=== PATIENT | male | born 1990 | race African-American/Black ===

== ENCOUNTER 2016-12-12 04:10 | Emergency (ER) | payer OTHER ==
[2016-12-12] MEDS ORDERED: Ondansetron INJ* 2 MG/ML VIAL IV ONE (04:20)
[2016-12-12] MEDS ORDERED: NS 0.9% 1000 ML* 1,000 ML IV ONE (04:20)
--- NOTE | 2016-12-12 04:57 | ED ---
I, Oh,Sotaylor, scribed for Marc Hines MD on 12/12/16 at 0431 . Abdominal Pain/Male - HPI Summary HPI Summary: This 26 y/o male presents to ED for acute diffuse abd pain and n/v since 0230 AM tonight. Pt took pepto bismol but threw up right after. Positive coffee ground emesis, sore throat, and diarrhea. Nausea is currently alleviated but still persists. PMHx includes asthma. - History of Current Complaint Chief Complaint: EDNauseaVomitDiarrh Stated Complaint: VOMITING BLOOD Time Seen by Provider: 12/12/16 04:20 Hx Obtained From: Patient, Medical Records Onset/Duration: Still Present Timing: Constant Pain Intensity: 6 Pain Scale Used: 0-10 Numeric Location: Diffuse Radiates: No Character: Dull Aggravating Factor(s): Nothing Alleviating Factor(s): Nothing Associated Signs And Symptoms: Positive: Nausea, Vomiting - coffee ground emesis , Diarrhea, Other - sore throat. - Allergies/Home Medications Allergies/Adverse Reactions: Allergies Allergy/AdvReac Type Severity Reaction Status Date / Time No Known Allergies Allergy Verified 06/25/14 15:49 PMH/Surg Hx/FS Hx/Imm Hx Respiratory History: Reports: Hx Asthma GI History: Denies: Hx Crohn's Disease, Hx Diverticulosis, Hx Gall Bladder Disease, Hx Gastroesophageal Reflux Disease, Hx Ulcer Infectious Disease History: Yes Infectious Disease History: Denies: Traveled Outside the [place] in Last 30 Days - Family History Known Family History: Positive: Hypertension - mother - Social History Alcohol Use: Rare Hx Substance Use: Yes Substance Use Type: Reports: Marijuana - occasionally Substance Use Comment - Amount & Last Used: rare - none today Hx Tobacco Use: No Smoking Status (MU): Never Smoked Tobacco Review of Systems Negative: Fever Positive: Abdominal Pain, Vomiting - coffee ground emesis, Diarrhea, Nausea All Other Systems Reviewed And Are Negative: Yes Physical Exam Triage Information Reviewed: Yes Vital Signs On Initial Exam: Initial Vitals Temp Pulse Resp BP Pulse Ox 99.1 F 81 16 138/60 97 12/12/16 04:15 12/12/16 04:15 12/12/16 04:15 12/12/16 04:15 12/12/16 04:15 Vital Signs Reviewed: Yes Appearance: Positive: Well-Appearing, No Pain Distress Skin: Positive: Warm Head/Face: Positive: Normal Head/Face Inspection Eyes: Positive: LUCY ENT: Positive: Hearing grossly normal Neck: Positive: Supple Respiratory/Lung Sounds: Positive: Clear to Auscultation, Breath Sounds Present Cardiovascular: Positive: RRR Abdomen Description: Positive: Nontender, Soft Bowel Sounds: Positive: Present Musculoskeletal: Positive: Strength/ROM Intact Neurological: Positive: Alert, Oriented to Person Place, Time Diagnostics - Vital Signs Vital Signs Temp Pulse Resp BP Pulse Ox 12/12/16 04:15 99.1 F 81 16 138/60 97 - Laboratory Result Diagrams: 12/12/16 04:34 12/12/16 04:34 Lab Statement: Any lab studies that have been ordered have been reviewed, and results considered in the medical decision making process. Re-Evaluation - Re-Evaluation First Eval Change: Improved Abdominal Pain Fem Course/Dx - Diagnoses Provider Diagnoses: Vomiting Discharge - Discharge Plan Condition: Improved Disposition: HOME Patient Education Materials: Acute Nausea and Vomiting (ED) Referrals: Snadro James MD [Primary Care Provider] - 2 Days The documentation as recorded by the Refugio turcios Soohyun accurately reflects the service I personally performed and the decisions made by Flora medina David, MD.
[2016-12-12 05:11] LABS: Hematocrit 42 % (42-52); Mean Corpuscular HGB Conc 33 g/dl (31-36); Mean Corpuscular Hemoglobin 27 pg (27-31); Mean Corpuscular Volume 82 fL (80-94); Mean Platelet Volume 9 um3 (7.4-10.4); Red Blood Count 5.11 10^6/ul (4.0-5.4); Red Cell Distribution Width 13 % (10.5-15); White Blood Count 6.5 10^3/ul (3.5-10.8)
[2016-12-12 05:20] LABS: Albumin 4.2 g/dL (3.2-5.2); BUN/Creatinine Ratio 9.8 (8-20); C Reactive Protein 13.99 mg/L (< 5.00); EGFR Non-African American 66.1 (>60); Globulin 3.4 g/dL (2-4); Potassium 3.6 mmol/L (3.5-5.0); Total Bilirubin 0.5 mg/dL (0.2-1.0); Total Protein 7.6 g/dL (6.4-8.9)
[2016-12-12 06:05] VITALS: BP 145/73
== END 2016-12-12 06:18 | disposition home or self-care (01) ==
LOC: ED 04:10
DX: R11.10 Vomiting, unspecified (principal); J45.909 Unspecified asthma, uncomplicated
CPT/HCPCS: 36415; 80053; 83690; 85025; 86140; 86703; 96360; 96374; 99282; J2405

== ENCOUNTER 2017-06-05 10:08 | Emergency (ER) | payer OTHER ==
[2017-06-05 10:35] VITALS: BP 132/77
== END 2017-06-05 11:35 | disposition left against medical advice (07) ==
LOC: ED 10:08
DX: R07.9 Chest pain, unspecified (principal); Z53.21 Procedure and treatment not carried out due to patient leaving prior to being seen by health care provider
CPT/HCPCS: 99281

== ENCOUNTER 2018-01-30 18:46 | Emergency (ER) | payer OTHER ==
[2018-01-30 19:43] LABS: ABS Basophils 0 10^3/ul (0-0.2); ABS Eosinophils 0.1 10^3/ul (0-0.6); ABS Lymphocytes 1.6 10^3/ul (1.0-4.8); ABS Monocytes 0.3 10^3/ul (0-0.8); ABS Neutrophils 1.8 10^3/ul (1.5-7.7); ABS Nucleated RBC 0 10^3/ul; Eosinophil % 3.6 % (0-6); Hematocrit 38 % (42-52); Hemoglobin 12.8 g/dl (14.0-18.0); Lymphocyte % 41.4 % (25-47); Mean Corpuscular HGB Conc 33 g/dl (31-36); Mean Corpuscular Hemoglobin 28 pg (27-31); Mean Corpuscular Volume 83 fL (80-94); Mean Platelet Volume 8.3 um3 (7.4-10.4); Nucleated Red Blood Cells % 0; Platelet Count 176 10^3/ul (150-450); Red Blood Count 4.64 10^6/ul (4.0-5.4); Red Cell Distribution Width 14 % (10.5-15)
--- NOTE | 2018-01-30 19:51 | ED ---
HPI Chest Pain - HPI Summary HPI Summary: Complains of intermittent mid CP 1 week. No active CP here in ED. CP described as pressure, intermittent, lasting 20-30 minutes at a time, no radiation, random onset, sternal. Denies associated SOB with episodes of CP, exercises regularly without cp or SOB. Patient denies fever, cough, sore throat , history of heartburn, N/V/D, abdominal pain, change in urine or BM. Medical history is asthma. Has used an inhaler without relief of chest pain. Patient non-tobacco smoker, negative family cardiac history. Denies use of illegal stimulants such as cocaine or methamphetamine. Does admit to using thermogenic metabolism booster super HD for 1 month with last dose 3 days ago. Denies history of blood clots, hx of CA, recent surgery or trauma, long distance travel , unilateral leg pain. - History of Current Complaint Chief Complaint: EDChestWallPain Time Seen by Provider: 01/30/18 19:08 Hx Obtained From: Patient Onset/Duration: Started Days Ago Timing: Intermittent Initial Severity: Mild Current Severity: Mild Pain Intensity: 4 Pain Scale Used: 0-10 Numeric Chest Pain Location: Mid Sternal Chest Pain Radiates: No Character: Pressure/Squeezing Aggravating Factor(s): Nothing Alleviating Factor(s): Nothing Associated Signs and Symptoms: Positive: Chest Pain - Allergy/Home Medications Allergies/Adverse Reactions: Allergies Allergy/AdvReac Type Severity Reaction Status Date / Time No Known Allergies Allergy Verified 01/30/18 18:59 Home Medications: Home Medications Albuterol HFA INHALER* [Ventolin HFA Inhaler*] 2 puff INH Q4H PRN 01/30/18 [ History Confirmed 01/30/18] PMH/Surg Hx/FS Hx/Imm Hx Respiratory History: Reports: Hx Asthma GI History: Denies: Hx Crohn's Disease, Hx Diverticulosis, Hx Gall Bladder Disease, Hx Gastroesophageal Reflux Disease, Hx Ulcer Infectious Disease History: No Infectious Disease History: Denies: Traveled Outside the [place] in Last 30 Days - Family History Known Family History: Positive: None, Hypertension - mother - Social History Alcohol Use: Rare Hx Substance Use: Yes Substance Use Type: Reports: Marijuana Substance Use Comment - Amount & Last Used: rare - none today Hx Tobacco Use: No Smoking Status (MU): Never Smoked Tobacco Review of Systems Constitutional: Negative Eyes: Negative ENT: Negative Positive: Chest Pain Respiratory: Negative Gastrointestinal: Negative Genitourinary: Negative Musculoskeletal: Negative Skin: Negative Neurological: Negative Psychological: Normal All Other Systems Reviewed And Are Negative: Yes Physical Exam - Summary Physical Exam Summary: CP not reproducible. Unknown pattern to onset or end of CP symptoms. Abdomen soft nontender. Vital signs within normal limits. Lung sounds clear to auscultation bilaterally. RRR Triage Information Reviewed: Yes Vital Signs On Initial Exam: Initial Vitals Temp Pulse Resp BP Pulse Ox 98.5 F 75 18 133/72 99 01/30/18 18:57 01/30/18 18:57 01/30/18 18:57 01/30/18 18:57 01/30/18 18:57 Vital Signs Reviewed: Yes Appearance: Positive: Well-Appearing Skin: Positive: Warm Head/Face: Positive: Normal Head/Face Inspection Eyes: Positive: Normal Neck: Positive: Supple Respiratory/Lung Sounds: Positive: Clear to Auscultation Cardiovascular: Positive: Normal Abdomen Description: Positive: Nontender Musculoskeletal: Positive: Normal Neurological: Positive: Normal Psychiatric: Positive: Normal AVPU Assessment: Alert - [place] Coma Scale Best Eye Response: 4 - Spontaneous Best Motor Response: 6 - Obeys Commands Best Verbal Response: 5 - Oriented Coma Scale Total: 15 Diagnostics - Vital Signs Vital Signs Temp Pulse Resp BP Pulse Ox 01/30/18 19:04 18 151/101 01/30/18 18:57 98.5 F 75 18 133/72 99 - Laboratory Lab Results: Lab Results 01/30/18 Range/Units 19:27 WBC 4.0 (3.5-10.8) 10^3/ul RBC 4.64 (4.0-5.4) 10^6/ul Hgb 12.8 L (14.0-18.0) g/dl Hct 38 L (42-52) % MCV 83 (80-94) fL MCH 28 (27-31) pg MCHC 33 (31-36) g/dl RDW 14 (10.5-15) % Plt Count 176 (150-450) 10^3/ul MPV 8.3 (7.4-10.4) um3 Neut % (Auto) 46.3 (38-83) % Lymph % (Auto) 41.4 (25-47) % [place] % (Auto) 8.1 H (0-7) % Eos % (Auto) 3.6 (0-6) % Baso % (Auto) 0.6 (0-2) % Absolute Neuts (auto) 1.8 (1.5-7.7) 10^3/ul Absolute Lymphs (auto) 1.6 (1.0-4.8) 10^3/ul Absolute Monos (auto) 0.3 (0-0.8) 10^3/ul Absolute Eos (auto) 0.1 (0-0.6) 10^3/ul Absolute Basos (auto) 0 (0-0.2) 10^3/ul Absolute Nucleated RBC 0 10^3/ul Nucleated RBC % 0 Result Diagrams: 01/30/18 19:27 01/30/18 19:27 Lab Statement: Any lab studies that have been ordered have been reviewed, and results considered in the medical decision making process. - Radiology cxr Xray Interpretation: No Acute Changes Radiology Interpretation Completed By: Radiologist - EKG 1 Cardiac Rate: NL EKG Rhythm: Sinus Rhythm ST Segment: Non-Specific Ectopy: None Re-Evaluation - Re-Evaluation 1 Re-Evaluation Time: 21:41 - , continues to have no chest pain. Chest Pain Course/Dx - Course Course Of Treatment: Complains of intermittent mid CP 1 week. No active CP here in ED. CP described as pressure, intermittent, lasting 20-30 minutes at a time, no radiation, random onset, sternal. Denies associated SOB with episodes of CP, exercises regulalry, denies hx of cp or sob with same. Patient denies fever, cough, sore throat, history of heartburn, N/V/D, abdominal pain, change in urine or BM. Medical history is asthma. Has used an inhaler without relief of chest pain. Patient non-tobacco smoker, negative family cardiac history. Denies use of illegal stimulants such as cocaine or methamphetamine. Does admit to using thermogenic metabolism booster super HD for 1 month with last dose 3 days ago. Denies history of blood clots, hx of CA, recent surgery or trauma, long distance travel, unilateral leg pain. CP not reproducible. Unknown pattern to onset or end of CP symptoms. Abdomen soft nontender. Vital signs within normal limits. Lung sounds clear to auscultation bilaterally. RRR. Vital signs within normal limits and stable. Patient continues to have no chest pain here in ED. Labs and imaging unremarkable. EKG unremarkable. Follow-up with primary care. - Diagnoses Provider Diagnoses: Atypical chest pain Discharge - Sign-Out/Discharge Documenting (check all that apply): Discharge/Admit/Transfer - Discharge Plan Condition: Stable Disposition: HOME Patient Education Materials: Chest Pain (ED) Referrals: No Primary Care Phys,NOPCP [Primary Care Provider] - [facility] [Outside] Additional Instructions: Follow-up with primary care. Return to the ED for any new or worsening symptoms - Billing Disposition and Condition Condition: STABLE Disposition: Home
[2018-01-30 19:55] LABS: EGFR Non-African American 73.2 (>60)
--- NOTE | 2018-01-30 19:59 | RAD ---
Indication: Confusion. 2 views of the chest including dual energy PA views demonstrate no mediastinal shift. Heart is of normal size and configuration. Lung conteh appear clear. IMPRESSION: No active cardiopulmonary disease is noted.
[2018-01-30 21:54] VITALS: BP 124/83
== END 2018-01-30 21:54 | disposition home or self-care (01) ==
LOC: ED 18:46
DX: R07.89 Other chest pain (principal); J45.909 Unspecified asthma, uncomplicated; Z82.49 Family history of ischemic heart disease and other diseases of the circulatory system
CPT/HCPCS: 36415; 71046; 80053; 80307; 83605; 84484; 85025; 86140; 93005; 99282